=== PATIENT | male | born 1990 | race Caucasian/White ===

== ENCOUNTER 2021-05-08 08:27 | Emergency (ER) | payer SELFPAY ==
[2021-05-08 08:33] VITALS: BP 131/74; PULSE 64; TEMP 98.4; BMI 24.6
[2021-05-08] MEDS ORDERED: predniSONE 20 MG TABLET (UD) PO ONE ×2 (09:02)
[2021-05-08] MEDS ORDERED: FAMOTIDINE 20 MG TABLET PO ONE (09:02)
[2021-05-08] MEDS ORDERED: diphenhydrAMINE HCL 25 MG CAPSULE (FP) PO ONE (09:03)
== END 2021-05-08 11:00 | disposition home or self-care (01) ==
LOC: JERFT 08:27
DX: R21 Rash and other nonspecific skin eruption (principal); T78.40XA Allergy, unspecified, initial encounter
CPT/HCPCS: 99283-25